=== PATIENT | male | born 1970 | race Caucasian/White ===

== ENCOUNTER 2018-06-20 12:44 | Inpatient (IN) | payer MEDICARE, MEDICAID ==
[~2018-06-20] VITALS: Ht 177.8 cm; Wt 63.0 kg
[2018-06-20 14:15] LABS: HEMATOCRIT 42.5 % (42.0-52.0); HEMOGLOBIN 15.2 g/dl (13.5-17.5); MEAN CORPUSCULAR HEMOGLOBIN 28.8 pg (27.0-33.0); MEAN CORPUSCULAR HGB CONC 35.8 g/dl (32.0-36.5); MEAN CORPUSCULAR VOLUME 80.6 fl (80.0-96.0); PLATELET COUNT, AUTOMATED 245 10^3/uL (150-450); RED BLOOD COUNT 5.27 10^6/uL (4.30-6.10); WHITE BLOOD COUNT 6.4 10^3/uL (4.0-10.0)
[2018-06-20 14:45] LABS: ACETAMINOPHEN LEVEL < 2.0 UG/ML (10.0-30.0); ALBUMIN 3.9 GM/DL (3.2-5.2); ALT/SGPT 25 U/L (12-78); BILIRUBIN,DIRECT 0.1 MG/DL (0.0-0.2); BILIRUBIN,TOTAL 0.6 MG/DL (0.2-1.0); BLOOD UREA NITROGEN 21 MG/DL (7-18); CALCIUM LEVEL 8.5 MG/DL (8.5-10.1); CARBON DIOXIDE LEVEL 25 MEQ/L (21-32); CHLORIDE LEVEL 107 MEQ/L (98-107); CREATININE FOR GFR 1.23 MG/DL (0.70-1.30); ETHYL ALCOHOL (ETHANOL) < 0.003 % (0.000-0.010); GLOMERULAR FILTRATION RATE > 60.0 (>56); GLUCOSE, FASTING 106 MG/DL (70-100); POTASSIUM SERUM 3.9 MEQ/L (3.5-5.1); SALICYLATE LEVEL < 1.7 MG/DL (5.0-30.0); SODIUM LEVEL 141 MEQ/L (136-145)
[2018-06-20 14:55] LABS: AMPHETAMINES LEVEL URINE NEGATIVE (NEGATIVE); BARBITURATES URINE NEGATIVE (NEGATIVE); BENZODIAZEPINES URINE NEGATIVE (NEGATIVE); CANNABINOIDS URINE NEGATIVE (NEGATIVE); COCAINE METABOLITE URINE NEGATIVE (NEGATIVE); METHADONE URINE NEGATIVE (NEGATIVE); OPIATES URINE NEGATIVE (NEGATIVE); PHENCYCLIDINE URINE NEGATIVE (NEGATIVE)
--- NOTE | 2018-06-20 17:10 | ED PDOC ---
Post-Departure Follow-Up pt became agitated w admission discussion.. unable to restrain physically due to chorea significant and do not want to cause physical harm. pt walking around room and is a fall risk due to chorea - dont want to at this pt do chemical restraints as we cannot safely restrain. spoke to pt. now undressed and more calm. will observe and reassess.Anthony Kimball MD Jun 20, 2018 17:10
[2018-06-20] MEDS ORDERED: OLANZapine ORAL DISINTEGRATING TAB 5MG PO PRN (18:00)
[2018-06-20] MEDS ORDERED: traZODone 50 MG TAB PO PRN (18:00)
[2018-06-20] MEDS ORDERED: MOM 30ML SUSPENSION UDC PO PRN (18:00)
[2018-06-20] MEDS ORDERED: ACETAMINOPHEN TAB 650MG DOSE (2X325MG) PO PRN (18:00)
[2018-06-20] MEDS ORDERED: MAALOX 30 ML SUSP *UDC PO PRN (18:00)
[2018-06-20] MEDS ORDERED: LORazepam 1 MG TAB PO PRN (18:00)
[2018-06-20] MEDS ORDERED: LORazepam 2 MG TAB PO STA (20:23)
[2018-06-20] MEDS ORDERED: diphenhydrAMINE INJ 50MG/ML VIAL (J1200) IM STA (22:13)
[2018-06-20] MEDS ORDERED: HALOPERIDOL 5 MG/ML VIAL (J1630) IM STA (22:13)
[2018-06-20] MEDS ORDERED: chlorproMAZINE INJ 50MG/2ML AMP (J3230) IM STA (22:42)
[2018-06-20 23:47] VITALS: BP 118/58
[2018-06-21] VITALS (12 sets, daily range): BP systolic 85–141; BP diastolic 52–80
[2018-06-21] MEDS: SERTRALINE HCL 50 MG TAB PO SCH (09:00)
[2018-06-21] MEDS: HALOPERIDOL 5 MG TAB PO SCH (09:00)
--- NOTE | 2018-06-21 10:57 | HPEPDOC ---
[facility] Medical History & Physical Date of Admission Jun 20, 2018 History and Physical PCP: ASHELY Awan ATTENDING: Dr. Peter Rosenbaum HPI: 48 yo M admitted to [facility] for adjustment disorder, being medically examined today. The patient is seen at the bedside, SYMONE present. The patient denies any medical concerns at this time. He has been noted to have unsteady gait, denies taking any medications for his history of [place]'s. Denies falls. Denies any assistive devices for ambulation. Denies any fevers, chills, weakness, fatigue, MAYS, CP, SOB, cough, palpitations, abdominal pain, N/V/D or changes in bowel or bladder habits. PMHx: Lesia's disease Unsteady gait History of dementia Anxiety Depression BMI 22.3. PSHX: Denies SOCHX: Resides in: [facility] Marital Status: Single Kids: None Employment: Unemployed Tobacco use: Denies ETOH: Denies Illicit Drugs: Denies IV Drug Use: Denies Tattoos done unprofessionally: Denies FAMHX: Mother: Alive, well Father: History of [place]'s disease Siblings: One brother, one sister Alive, well Children: Alive, well Unexpected deaths due to medical reasons: None. ROS: As noted in HPI, otherwise 11pt ROS of systems reviewed and unremarkable. PE: Limited exam at the bedside. GEN: 48 yo M, appears older than stated age. Thin appearing. Appears unkept. Alert and oriented x 3. Slow to respond to questions, vague responses. HEENT: Normocephalic, atraumatic. No nystagmus appreciated. Sclera are nonicteric. Conjunctiva without injection. No facial asymmetry. Moist mucous membranes. CHEST: Regular rate and rhythm, +S1, +S2 LUNGS: Clear to auscultation bilaterally. No wheezes, rales, or rhonchi. Breathing appears symmetric and easy. ABD: flat, soft, non-tender, non-distended. +Bowel sounds throughout. No rebound or guarding. No costovertebral angle tenderness. EXT: No lower extremity edema appreciated. SKIN: [place], dry, warm. No rashes. NEURO: Alert and oriented x 3. No focal deficits appreciated. Frequent choreiform movements. EKG: pending A&P: 48 yo M admitted to [facility] for adjustment disorder, 1. Psych. Plan per Psychiatry. EObtain baseline EKG to assure the safety of psychiatric medications as they can prolong the QT interval. 2. Lesia's disease. Pt states he follows with Neurology at the [place] in [place]. 3. Unsteady gait. PT evaluation requested. Fall precautions. SYMONE at bedside. 4. BMI 22.3. Request nutrition consult. The pt is denying any difficulty with swallowing, denies cough. 5. Follow up with PCP on discharge. Vital Signs Vital Signs Date Time Temp Pulse Resp B/P (MAP) Pulse Ox O2 Delivery O2 Flow Rate FiO2 06/21/18 06:51 96.5 94 14 123/60 (81) 06/20/18 21:05 98 Room Air Laboratory Data Labs 24H Laboratory Tests 2 06/20/18 13:40: Nucleated Red Blood Cells % (auto) 0.0, Anion Gap 9, Glomerular Filtration Rate > 60.0, Calcium Level 8.5, Aspartate Amino Transf (AST/SGOT) 21, Alanine Aminotransferase (ALT/SGPT) 25, Alkaline Phosphatase 94, Total Bilirubin 0.6, Direct Bilirubin 0.1, Total Protein 7.0, Albumin 3.9, Albumin/Globulin Ratio 1.26, Thyroid Stimulating Hormone (TSH) 2.290, Salicylates Level < 1.7L, Acetaminophen Level < 2.0L, Ethyl Alcohol Level < 0.003 06/20/18 13:49: Urine Amphetamines Screen NEGATIVE, Urine Benzodiazepines Screen NEGATIVE, Urine Opiates Screen NEGATIVE, Urine Methadone Screen NEGATIVE, Urine Barbiturates Screen NEGATIVE, Urine Phencyclidine Screen NEGATIVE, Urine Cocaine Metabolite Screen NEGATIVE, Urine Cannabinoids Screen NEGATIVE CBC/BMP Laboratory Tests 06/20/18 13:40 Red Blood Count 5.27, Mean Corpuscular Volume 80.6, Mean Corpuscular Hemoglobin 28.8, Mean Corpuscular Hemoglobin Concent 35.8, Red Cell Distribution Width 12.9 Home Medications No Active Prescriptions or Reported Meds Allergies Coded Allergies: No Known Allergies (Unverified , 06/20/18) Marcela Gonsalez Jun 21, 2018 10:57
--- NOTE | 2018-06-21 13:02 | MHHPEPDOC ---
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 He was guarded and a poor historian refusing medical and psychiatric treatment for his illness. He was cooperative in the ED though. 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 Unsteady gait History of dementia Head Injury: No Seizures: No Hospitalizations: No Surgeries: No Family Medical/Psychiatric HX Medical Problems noncontributory Psychiatric Disorders: No Addiction: No Suicide Attemps/Completions: No Addiction History denies Social History Childhood: unable to assess Abuse/Trauma:unable to assess Current Living Situation: lives alone, 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 Education: high school Employment: disability Social Support: mother and sister Legal: none known Marital: single never Mental Status Examination General Appearance: ds/not appear stated age (older), hospital scubs/clothing, other (asleep in bed, changes position in bed often while asleep) Build: thin Demeanor: other (unable to assess) Eye Contact: other (unable to assess) Activity: other (hoang's chorea) Behavior: other (unable to assess) Speech: other (unable to assess) Mood: other (unable to assess) Mood unable to assess Affect: other (unable to assess) Thought Process: other (unable to assess) Thought Content (Delusions): denies SI, HI, AVH, other (per ED) Thought Content (Other): other (unable to assess) Thought Content (Aggressive): none reported, other (has Calvert's Chorea and mvmts uncontrollable due to disease and are not intentional) Perception (Hallucinations): none reported, other (per ED) Perception (Other): none reported Cognition (Impairment of): memory (history of demetia), unable to assess Cognition(Intelligence Est.): other (unable to assess) Insight: fair Judgment: Fair Psychosis: Denies Diagnoses Other mood d/o unspecified Hoang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 Dementia Assessment Pt currently asleep with sitter present to monitor him due to high risk of falls give he has hoang's chorea and has been cooperative with care and calm on the unit since he's been here. Pt's symptoms most likely due to natural decompensation of Calvert's disease to chorea and eventual and would best be treated neurologically to aid with chorea at home causing him to unintensionally break things rather than psychiatrically inpatient. May need NH placement as again is natural progress and decompensation prior to secondary disease. Will consult neurology. Will start pt on amantidine 100mg tid to improve chorea movements for now, haldol 5mg bid for agitation secondary chorea, and zoloft 50mg for mood. Initial Treatment Plan 1. Patient was admitted on a 9.39 status. 2. Complete history was obtained. 3. With patients permission, family will be contacted and database will be expanded. 4. Patients medication regimen will be reviewed and changed accordingly. 5. Patient will be provided with protected environment. 6. Patient will be treated with individual, group, and milieu therapies. 7. Patient will receive supportive psych-education. 8. Discharge planning will commence immediately. 9. Outpatient follow-up treatment will be strongly recommended. 10. The initial treatment plan will focus initially on: * Depression. * Risk for suicide. * Substance abuse. 11. consult neurology. amantidine 100mg tid to improve chorea movements, haldol 5mg bid for agitation secondary chorea, and zoloft 50mg for mood. ESTIMATED LENGTH OF STAY: 5-7 DAYS. TIME SPENT COUNSELING AND COORDINATING INITIAL CARE: 60 minutes. Vital Signs Vital Signs Date Time Temp Pulse Resp B/P (MAP) Pulse Ox O2 Delivery O2 Flow Rate FiO2 06/21/18 06:51 96.5 94 14 123/60 (81) 06/20/18 21:05 98 Room Air Laboratory Data 24H Labs Laboratory Tests 2 06/20/18 13:40: Nucleated Red Blood Cells % (auto) 0.0, Anion Gap 9, Glomerular Filtration Rate > 60.0, Calcium Level 8.5, Aspartate Amino Transf (AST/SGOT) 21, Alanine Aminotransferase (ALT/SGPT) 25, Alkaline Phosphatase 94, Total Bilirubin 0.6, Direct Bilirubin 0.1, Total Protein 7.0, Albumin 3.9, Albumin/Globulin Ratio 1.26, Thyroid Stimulating Hormone (TSH) 2.290, Salicylates Level < 1.7L, Acetaminophen Level < 2.0L, Ethyl Alcohol Level < 0.003 06/20/18 13:49: Urine Amphetamines Screen NEGATIVE, Urine Benzodiazepines Screen NEGATIVE, Urine Opiates Screen NEGATIVE, Urine Methadone Screen NEGATIVE, Urine Barbiturates Screen NEGATIVE, Urine Phencyclidine Screen NEGATIVE, Urine Cocaine Metabolite Screen NEGATIVE, Urine Cannabinoids Screen NEGATIVE CBC/BMP Laboratory Tests 06/20/18 13:40 Red Blood Count 5.27, Mean Corpuscular Volume 80.6, Mean Corpuscular Hemoglobin 28.8, Mean Corpuscular Hemoglobin Concent 35.8, Red Cell Distribution Width 12.9 Medications No Active Prescriptions or Reported Meds Allergies Coded Allergies: No Known Allergies (Unverified , 06/20/18) YOSELIN DENSON DO Jun 21, 2018 1:02 pm
[2018-06-21] MEDS: AMANTADINE 100 MG CAP PO SCH (15:23)
[2018-06-21] MEDS ORDERED: diphenhydrAMINE INJ 50MG/ML VIAL (J1200) IM STA ×2 (18:24→18:28)
[2018-06-21] MEDS ORDERED: HALOPERIDOL 5 MG/ML VIAL (J1630) IM STA ×2 (18:24→18:28)
[2018-06-21] MEDS ORDERED: LORazepam 2 MG/ML VIAL (J2060) IM STA ×2 (18:24→18:28)
[2018-06-21] MEDS ORDERED: HALOPERIDOL 5 MG/ML VIAL (J1630) As Ordered ONE (18:27)
[2018-06-21] MEDS ORDERED: LORazepam 2 MG/ML VIAL (J2060) As Ordered ONE (18:27)
[2018-06-21] MEDS ORDERED: diphenhydrAMINE INJ 50MG/ML VIAL (J1200) As Ordered ONE (18:28)
--- NOTE | 2018-06-21 18:48 | MHIR ---
General Date: Jun 21, 2018 Time Initiated: 18:20 Restraint Documentation Order/Evaluation FACE TO FACE: Yes PHYSICIAN ASSESSMENT: Patient was agitated, angry, wanted to leave the unit, was threatening to staff, loud, inappropriate. REASON FOR RESTRAINT: Patient poses imminent danger of harming self or others: As above DE-ESCALATION INTERVENTIONS ATTEMPTED BEFORE USE OF RESTRAINTS: Re direction, staff support, PRN meds, room close to Nurse station MECHANICAL AND/OR CHEMICAL RESTRAINTS USED: Patient was going to be on 4 point restraints but once he was taken to his room and he was told he would have to receive IM medications, he accepted them and remained quite, laying in bed. NO MECHANICAL RESTRAINTS HAD TO BE APPLIED LENGTH OF TIME ORDERED IN RESTRAINTS: It's only as long as the medications last in patient's system WHEN TO DISCONTINUE RESTRAINTS: When the patient is no longer a threat to themselves or others Post evaluation of restraint due in 24 hours. KAITLIN MENDOZA MD Jun 21, 2018 18:48
--- NOTE | 2018-06-21 19:00 | MHIPNPDOC ---
[facility] Progress Note Progress Note DATE OF SERVICE: 06/21/18 HISTORY: This is a 48 year old male who presented agitated, screaming, yelling at staff, approaching the door because he wants to leave the Unit, at tempting to pull the fire alarm. He presented with jerking movements he was not willing to leave that area but eventually he did it. TW spoke with staff and agreed on having him 4 point restrained but once he went to the room and he was told that he was b eing coded, he accepted his IM medications and remained in his room. There was no need to restraint him anymore. Vital Signs Vital Signs Date Time Temp Pulse Resp B/P (MAP) Pulse Ox O2 Delivery O2 Flow Rate FiO2 06/21/18 06:51 96.5 94 14 123/60 (81) 06/20/18 21:05 98 Room Air Current Medications Current Medications Acetaminophen (Tylenol Tab) 650 mg Q6HP PRN PO HEADACHE or DISCOMFORT; Start 06/20/18 at 18:00 Al Hydrox/Mg Hydrox/Simethicone (Mylanta) 30 ml Q4HP PRN PO HEARTBURN/INDIGESTION; Start 06/20/18 at 18:00 Amantadine HCl (Symmetrel) 100 mg TID PO ; Start 06/21/18 at 16:00 Chlorpromazine HCl (Thorazine) 50 mg STAT STAT IM Last administered on 06/20/18at 22:42; Start 06/20/18 at 22:42; Stop 06/20/18 at 22:44; Status DC Diphenhydramine HCl (Benadryl) 50 mg STAT STAT IM Last administered on 06/20/18at 22:13; Start 06/20/18 at 22:13; Stop 06/20/18 at 22:15; Status DC Diphenhydramine HCl (Benadryl) 50 mg STAT STAT IM ; Start 06/21/18 at 18:24; Stop 06/21/18 at 18:28; Status DC Haloperidol (Haldol) 5 mg BID PO ; Start 06/21/18 at 09:00 Haloperidol (Haldol) 5 mg STAT STAT IM Last administered on 06/20/18at 22:13; Start 06/20/18 at 22:13; Stop 06/20/18 at 22:15; Status DC Haloperidol (Haldol) 10 mg STAT STAT IM ; Start 06/21/18 at 18:24; Stop 06/21/18 at 18:27; Status DC Home Med (Med Rec Complete!) ASDIRECTED XX ; Start 06/20/18 at 16:30; Stop 06/20/18 at 16:30; Status DC Lorazepam (Ativan) 1 mg Q4HP PRN PO ANXIETY/AGITATION; Start 06/20/18 at 18:00 Lorazepam (Ativan) 2 mg STAT STAT IM ; Start 06/21/18 at 18:24; Stop 06/21/18 at 18:28; Status DC Lorazepam (Ativan) 2 mg STAT STAT PO ; Start 06/20/18 at 20:23; Stop 06/20/18 at 20:24; Status DC Magnesium Hydroxide (Milk Of Magnesia) 30 ml DAILYPRN PRN PO CONSTIPATION; Start 06/20/18 at 18:00 Olanzapine (ZyPREXA ZYDIS) 5 mg Q4HP PRN PO ANXIETY/AGITATION; Start 06/20/18 at 18:00 Sertraline HCl (Zoloft) 50 mg DAILY PO ; Start 06/21/18 at 09:00 Trazodone HCl (Desyrel) 50 mg QHSP PRN PO INSOMNIA; Start 06/20/18 at 18:00 Allergies Coded Allergies: No Known Allergies (Unverified , 06/20/18) KAITLIN MENDOZA MD Jun 21, 2018 19:00
--- NOTE | 2018-06-21 20:29 | MHPR ---
General Date: Jun 21, 2018 Time: 20:23 Post-Restraint Evaluation THE OUTCOME OF THE RESTRAINT: Positive EFFECTIVENESS OF THE RESTRAINT: Mechanical: Positive, patient ANY EVIDENCE THAT THE PATIENT WAS AFFECTED EMOTIONALLY: Not in a negative way. he was able to calm down and relax, something that he needs. ANY NEED FOR COUNSELING/ASSISTANCE: The administration of the Im medications was not traumatic, he acceptd to have the injection and remained in his room. he will be counseled, support will be provided. CHANGES IN TREATMENT PLAN: As per Dr. Mckinney. RECOMMENDATIONS FOR FUTURE INCIDENTS: continue to assist him and provide support.. KAITLIN MENDOZA MD Jun 21, 2018 20:29
[2018-06-22] MEDS: HALOPERIDOL 5 MG TAB PO SCH ×4 (07:55→21:00)
[2018-06-22] MEDS: SERTRALINE HCL 50 MG TAB PO SCH ×2 (07:55→09:00)
[2018-06-22] MEDS: AMANTADINE 100 MG CAP PO SCH ×5 (07:56→21:00)
--- NOTE | 2018-06-22 09:48 | CR ---
DATE OF CONSULTATION: 06/21/2018 REFERRING PHYSICIAN: Dr. Mckinney REASON FOR CONSULTATION: Lesia's disease. HISTORY PRESENT ILLNESS: Porfirio Henao is a 48-year-old man who was admitted at [facility] mental health unit due to aggressive behavior and inability to take care of himself. The patient had broken things in his house including cabinet doors and countertop in his kitchen. He became more aggressive and anxious. He was banging head on the wall of his doctor's appointment at the [place] [facility]. He had poor hygiene. 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 Patient has a history of dementia. 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 He follows with [place] neurology. When I went to see the patient this evening, the patient had received chemical restraint with 10 mg of Haldol, 2 mg of Ativan and 50 mg of Benadryl. He was sleeping and would not wake up to verbal or physical stimuli when I saw him. His blood pressure was manually checked and was 100/60 at that time. I was not able to get any meaningful history from the patient. It is unclear to me why the patient was brought [facility] instead of the [facility] where his neurologist and psychiatrist are likely. PAST MEDICAL HISTORY: Lesia's disease, which according to EMR was diagnosed 20 years ago. Unsteady gait. Dementia. Anxiety. Depression. SOCIAL HISTORY: He is unemployed. There are no reports of smoking, alcohol or illicit drugs. FAMILY HISTORY: Father has [place]'s disease. REVIEW OF SYSTEMS: Could not be obtained. ALLERGIES: None. HOME MEDICATIONS: None. PHYSICAL EXAMINATION: Temperature 98.6, pulse 88, respiratory 18, blood pressure 100/69 manually. Heart: Regular rate and rhythm. Lungs: Clear to auscultation. No pedal edema. No musculoskeletal abnormalities. No rash. No signs of meningeal irritation. The patient is currently sleeping due to chemical restraint. He is not arousable to verbal and physical stimuli. He does not have any abnormal movements while he is sleeping. Nurses have noted a lot of abnormal movements all over his body indicative of choreoathetosis from his diagnosis of [place]'s disease. I am unable to do any other neurological examination. His plantars are downgoing. DIAGNOSTIC STUDIES: His CBC, metabolic profile and urine toxicology screen were normal. Blood alcohol level was not detectable. ASSESSMENT: 1. [place]'s disease. 2. 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 PLAN: 1. MRI or CT scan of head if possible to assess degree of cerebral and caudate nuclei atrophy. 2. Agree with starting Zoloft 50 mg by mouth daily. 3. Lesia's disease related choreoathetosis is best treated with medications like tetrabenazine and its other isomers which are all commercially available, but not in the hospital. They are usually started as outpatient. I have no records from [place] neurology if these were ever tried and/or results. 4. Continue Zyprexa 5 mg by mouth every 4 hours as needed for anxiety and aggressive behavior. The patient is on Haldol 5 mg by mouth twice a day. Typical antipsychotics also have benefit in choreoathetosis and controlling his mood. 5. He would likely need placement. 6. The patient will follow-up with his neurologist at the [facility].
--- NOTE | 2018-06-22 14:46 | MHIPNPDOC ---
[facility] Progress Note Progress Note DATE OF SERVICE: 06/22/18 HISTORY: See HPI. Interval history: States he does not want to be here and was not compliant to interview. Was agitated and states being on the inpatient unit makes him feel suicidal. Endorses passive homicidal thoughts towards those placing him on the inpatient as an expression of anger. Told him neurology recommended we get imaging and that. VITAL SIGNS: See below. NEW TEST RESULTS: see below CURRENT MEDICATIONS: See below. MENTAL STATUS EXAMINATION: Patient is a -year old male, with HD, he is with poor hygiene, restless in hospi tejinder clothing, not cooperative to interview. Speech: erratic rate, rhythm, increased volume. Language skills are poor Thought processes including: disorganized, tangential Thought content: unable to assess, refused to continue interview/agitated Abstract reasoning, and computation: unable to assess, refused to continue interview/agitated Description of associations: unable to assess, refused to continue interview/agitated Description of abnormal or psychotic thoughts: unable to assess, refused to continue interview/agitated Judgment: poor Insight: poor Orientation: alert, awake Recent and remote memory: unable to assess, refused to continue interview/agitated Attention span and concentration: unable to assess, refused to continue interview/agitated Language: korean Fund of knowledge: unable to assess, refused to continue interview/agitated Mood: angry Affect: agitated, angry, labile, disorganized, does not smile DIAGNOSES: Other mood d/o unspecified Coke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 Dementia ASSESSMENT: Patient has been refusing medications/groups. Continues to be angry/agitated with passive SI/HI reported. Refused to continue interview and became agitated. MANAGEMENT PLAN: Continue plan/medications, ordered MRI brain w/o contrast per neurology recommendations due to possible cerebral and caudate atrophy (which was cancelled due elopement risk and ). Maintained on 1:1 due to fall risk. TIME SPENT: 10 minutes. Vital Signs Vital Signs Date Time Temp Pulse Resp B/P (MAP) Pulse Ox O2 Delivery O2 Flow Rate FiO2 06/22/18 09:21 Room Air 06/21/18 20:45 98.4 83 12 98/58 06/21/18 19:30 98 Current Medications Current Medications Acetaminophen (Tylenol Tab) 650 mg Q6HP PRN PO HEADACHE or DISCOMFORT; Start 06/20/18 at 18:00 Al Hydrox/Mg Hydrox/Simethicone (Mylanta) 30 ml Q4HP PRN PO HEARTBURN /INDIGESTION; Start 06/20/18 at 18:00 Amantadine HCl (Symmetrel) 100 mg TID PO ; Start 06/21/18 at 16:00 Chlorpromazine HCl (Thorazine) 50 mg STAT STAT IM Last administered on 06/20/18at 22:42; Start 06/20/18 at 22:42; Stop 06/20/18 at 22:44; Status DC Diphenhydramine HCl (Benadryl) 50 mg STAT STAT IM Last administered on 06/20/18at 22:13; Start 06/20/18 at 22:13; Stop 06/20/18 at 22:15; Status DC Diphenhydramine HCl (Benadryl) 50 mg STAT STAT IM Last administered on 06/21/18at 18:39; Start 06/21/18 at 18:24; Stop 06/21/18 at 18:28; Status DC Diphenhydramine HCl (Benadryl) 50 mg STAT STAT IM ; Start 06/21/18 at 18:28; Stop 06/21/18 at 18:32; Status DC Haloperidol (Haldol) 5 mg BID PO ; Start 06/21/18 at 09:00 Haloperidol (Haldol) 5 mg STAT STAT IM Last administered on 06/20/18at 22:13; Start 06/20/18 at 22:13; Stop 06/20/18 at 22:15; Status DC Haloperidol (Haldol) 10 mg STAT STAT IM Last administered on 06/21/18at 18:39; Start 06/21/18 at 18:24; Stop 06/21/18 at 18:27; Status DC Haloperidol (Haldol) 10 mg STAT STAT IM ; Start 06/21/18 at 18:28; Stop 06/21/18 at 18:32; Status DC Home Med (Med Rec Complete!) ASDIRECTED XX ; Start 06/20/18 at 16:30; Stop 06/20/18 at 16:30; Status DC Lorazepam (Ativan) 1 mg Q4HP PRN PO ANXIETY/AGITATION; Start 06/20/18 at 18:00 Lorazepam (Ativan) 2 mg STAT STAT IM Last administered on 06/21/18at 18:38; Start 06/21/18 at 18:24; Stop 06/21/18 at 18:28; Status DC Lorazepam (Ativan) 2 mg STAT STAT IM ; Start 06/21/18 at 18:28; Stop 06/21/18 at 18:32; Status DC Lorazepam (Ativan) 2 mg STAT STAT PO ; Start 06/20/18 at 20:23; Stop 06/20/18 at 20:24; Status DC Magnesium Hydroxide (Milk Of Magnesia) 30 ml DAILYPRN PRN PO CONSTIPATION; Start 06/20/18 at 18:00 Olanzapine (ZyPREXA ZYDIS) 5 mg Q4HP PRN PO ANXIETY/AGITATION; Start 06/20/18 at 18:00 Sertraline HCl (Zoloft) 50 mg DAILY PO ; Start 06/21/18 at 09:00 Trazodone HCl (Desyrel) 50 mg QHSP PRN PO INSOMNIA; Start 06/20/18 at 18:00 Allergies Coded Allergies: No Known Allergies (Unverified , 06/20/18) URIEL COELHO PGY-1 Jun 22, 2018 14:32
[2018-06-22 18:37] VITALS: BP 133/63
[2018-06-23] MEDS: AMANTADINE 100 MG CAP PO SCH ×3 (09:00→21:00)
[2018-06-23] MEDS: HALOPERIDOL 5 MG TAB PO SCH ×2 (09:00→21:00)
[2018-06-23] MEDS: SERTRALINE HCL 50 MG TAB PO SCH (09:00)
--- NOTE | 2018-06-23 10:01 | MHIPNPDOC ---
[facility] Progress Note Progress Note DATE OF SERVICE: 06/23/18 HISTORY: See HPI. Interval history: Refusing medications and imaging cancelled since refused. Non- compliant to interview. Becomes agitated when attempt to interview, but is calm on 1:1. Was seen in social milieu getting breakfast and also on the phone in the corridor. Says he is not suicidal if he can leave. Says he does not need to be here. VITAL SIGNS: See below. NEW TEST RESULTS: see below CURRENT MEDICATIONS: See below. MENTAL STATUS EXAMINATION: Patient is a -year old male, with HD, he is with poor hygiene, restless in hospital clothing, not cooperative to interview. Speech: erratic rate, rhythm, increased volume. Language skills are poor Thought processes including: disorganized, tangential Thought content: unable to assess, refused to continue interview/agitated Abstract reasoning, and computation: unable to assess, refused to continue interview/agitated Description of associations: unable to assess, refused to continue interview/agitated Description of abnormal or psychotic thoughts: unable to assess, refused to continue interview/agitated Judgment: poor Insight: poor Orientation: alert, awake Recent and remote memory: unable to assess, refused to continue interview/agitated Attention span and concentration: unable to assess, refused to continue interview/agitated Language: tamazight Fund of knowledge: again unable to assess, refused to continue interview/agitated Mood: angry Affect: agitated, angry, labile, disorganized, does not smile DIAGNOSES: 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 Continues to be angry/agitated. Refused to be interviewed and became agitated again. Calm when not disturbed and with 1:1. MANAGEMENT PLAN: Continue plan/medications. Continues to refuse zoloft, haldol. Maintained on 1:1 due to fall risk. TIME SPENT: 10 minutes. Vital Signs Vital Signs Date Time Temp Pulse Resp B/P (MAP) Pulse Ox O2 Delivery O2 Flow Rate FiO2 06/23/18 08:30 Room Air 06/22/18 18:37 98.1 90 20 133/63 (86) 06/21/18 19:30 98 Current Medications Current Medications Acetaminophen (Tylenol Tab) 650 mg Q6HP PRN PO HEADACHE or DISCOMFORT; Start 06/20/18 at 18:00 Al Hydrox/Mg Hydrox/Simethicone (Mylanta) 30 ml Q4HP PRN PO HEARTBURN/INDIGESTION; Start 06/20/18 at 18:00 Amantadine HCl (Symmetrel) 100 mg TID PO ; Start 06/21/18 at 16:00 Chlorpromazine HCl (Thorazine) 50 mg STAT STAT IM Last administered on 06/20/18at 22:42; Start 06/20/18 at 22:42; Stop 06/20/18 at 22:44; Status DC Diphenhydramine HCl (Benadryl) 50 mg STAT STAT IM Last administered on 06/20/18at 22:13; Start 06/20/18 at 22:13; Stop 06/20/18 at 22:15; Status DC Diphenhydramine HCl (Benadryl) 50 mg STAT STAT IM Last administered on at 18:39; Start 06/21/18 at 18:24; Stop 06/21/18 at 18:28; Status DC Diphenhydramine HCl (Benadryl) 50 mg STAT STAT IM ; Start 06/21/18 at 18:28; Stop 06/21/18 at 18:32; Status DC Haloperidol (Haldol) 5 mg BID PO ; Start 06/21/18 at 09:00 Haloperidol (Haldol) 5 mg STAT STAT IM Last administered on 06/20/18at 22:13; Start 06/20/18 at 22:13; Stop 06/20/18 at 22:15; Status DC Haloperidol (Haldol) 10 mg STAT STAT IM Last administered on 06/21/18at 18:39; Start 06/21/18 at 18:24; Stop 06/21/18 at 18:27; Status DC Haloperidol (Haldol) 10 mg STAT STAT IM ; Start 06/21/18 at 18:28; Stop 06/21/18 at 18:32; Status DC Home Med (Med Rec Complete!) ASDIRECTED XX ; Start 06/20/18 at 16:30; Stop 06/20/18 at 16:30; Status DC Lorazepam (Ativan) 1 mg Q4HP PRN PO ANXIETY/AGITATION; Start 06/20/18 at 18:00 Lorazepam (Ativan) 2 mg STAT STAT IM Last administered on 06/21/18at 18:38; St art 06/21/18 at 18:24; Stop 06/21/18 at 18:28; Status DC Lorazepam (Ativan) 2 mg STAT STAT IM ; Start 06/21/18 at 18:28; Stop 06/21/18 at 18:32; Status DC Lorazepam (Ativan) 2 mg STAT STAT PO ; Start 06/20/18 at 20:23; Stop 06/20/18 at 20:24; Status DC Magnesium Hydroxide (Milk Of Magnesia) 30 ml DAILYPRN PRN PO CONSTIPATION; Start 06/20/18 at 18:00 Olanzapine (ZyPREXA ZYDIS) 5 mg Q4HP PRN PO ANXIETY/AGITATION; Start 06/20/18 at 18:00 Sertraline HCl (Zoloft) 50 mg DAILY PO ; Start 06/21/18 at 09:00 Trazodone HCl (Desyrel) 50 mg QHSP PRN PO INSOMNIA; Start 06/20/18 at 18:00 Allergies Coded Allergies: No Known Allergies (Unverified , 06/20/18) URIEL COELHO PGY-1 Jun 23, 2018 10:01
[2018-06-23 18:27] VITALS: BP 136/86
[2018-06-24] MEDS: AMANTADINE 100 MG CAP PO SCH ×3 (09:00→20:52)
[2018-06-24] MEDS: SERTRALINE HCL 50 MG TAB PO SCH (09:00)
[2018-06-24] MEDS: HALOPERIDOL 5 MG TAB PO SCH ×2 (09:00→20:52)
--- NOTE | 2018-06-24 10:14 | MHIPNPDOC ---
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 He was guarded and a poor historian refusing medical and psychiatric treatment for his illness. He was cooperative in the ED though. VITAL SIGNS: See below. NEW TEST RESULTS: see below Neurology consulted and please see consult note for full detail. Agrees with meds and current plan NH placement. CURRENT MEDICATIONS: See below. MENTAL STATUS EXAMINATION: Patient is a 48-year old male, with HD, he is with poor hygiene, chorea movements, hospital clothing, cooperative to interview. Speech: impoverished and one word responses Language skills are poor Thought processes including: appear mostly linear and logical Thought content: denies SI/HI, AVH Description of associations: unable to assess due to limited answers to question Description of abnormal or psychotic thoughts: denies Judgment: poor Insight: poor Orientation: alert, awake, oriented x3 Recent and remote memory: unable to assess due to limited answers to question Attention span and concentration: fair Language: nepali Fund of knowledge: hx of dementia secondary HD, unable to assess due to limited answers to question Mood: "ok" Affect: slightly irritable, labile DIAGNOSES: 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 Continues to state he doesn't want to take medications and will not give specific reason other than he just doesn't want to take them. Encouraged to try them to aid him with mood, irritability, and chorea. Pt's symptoms most likely due to natural decompensation of Lesia's disease to chorea and eventual . Pt seen by neurology on Sunday who agrees with current med regimen that I discussed with him as tetrabenzine not available in the hospital. Pt currently refusing medication and head CT/MRI and will continue to encourage compliance to improve his symptoms. He is calm and cooperative today with no episodes of agitation. Did require restraints due to agitation on Sunday evening. Will need NH placement as again is natural progress and decompensation prior to secondary disease and per d/c exercise planner is on wait list for [facility]. MANAGEMENT PLAN: pending neurology consult Medications: amantidine 100mg tid haldol 5mg bid for agitation secondary chorea zoloft 50mg for mood. TIME SPENT: 30 minutes. Vital Signs Vital Signs Date Time Temp Pulse Resp B/P (MAP) Pulse Ox O2 Delivery O2 Flow Rate FiO2 06/23/18 18:27 98.5 72 20 136/86 (103) 06/23/18 08:30 Room Air 06/21/18 19:30 98 Current Medications Current Medications Acetaminophen (Tylenol Tab) 650 mg Q6HP PRN PO HEADACHE or DISCOMFORT; Start 06/20/18 at 18:00 Al Hydrox/Mg Hydrox/Simethicone (Mylanta) 30 ml Q4HP PRN PO HEARTBURN/INDIGESTION; Start 06/20/18 at 18:00 Amantadine HCl (Symmetrel) 100 mg TID PO ; Start 06/21/18 at 16:00 Chlorpromazine HCl (Thorazine) 50 mg STAT STAT IM Last administered on 06/20/18at 22:42; Start 06/20/18 at 22:42; Stop 06/20/18 at 22:44; Status DC Diphenhydramine HCl (Benadryl) 50 mg STAT STAT IM Last administered on 06/20/18at 22:13; Start 06/20/18 at 22:13; Stop 06/20/18 at 22:15; Status DC Diphenhydramine HCl (Benadryl) 50 mg STAT STAT IM Last administered on 06/21/18at 18:39; Start 06/21/18 at 18:24; Stop 06/21/18 at 18:28; Status DC Diphenhydramine HCl (Benadryl) 50 mg STAT STAT IM ; Start 06/21/18 at 18:28; Stop 06/21/18 at 18:32; Status DC Haloperidol (Haldol) 5 mg BID PO ; Start 06/21/18 at 09:00 Haloperidol (Haldol) 5 mg STAT STAT IM Last administered on 06/20/18at 22:13; Start 06/20/18 at 22:13; Stop 06/20/18 at 22:15; Status DC Haloperidol (Haldol) 10 mg STAT STAT IM Last administered on 06/21/18at 18:39; Start 06/21/18 at 18:24; Stop 06/21/18 at 18:27; Status DC Haloperidol (Haldol) 10 mg STAT STAT IM ; Start 06/21/18 at 18:28; Stop 06/21/18 at 18:32; Status DC Home Med (Med Rec Complete!) ASDIRECTED XX ; Start 06/20/18 at 16:30; Stop 06/20/18 at 16:30; Status DC Lorazepam (Ativan) 1 mg Q4HP PRN PO ANXIETY/AGITATION; Start 06/20/18 at 18:00 Lorazepam (Ativan) 2 mg STAT STAT IM Last administered on 06/21/18at 18:38; Start 06/21/18 at 18:24; Stop 06/21/18 at 18:28; Status DC Lorazepam (Ativan) 2 mg STAT STAT IM ; Start 06/21/18 at 18:28; Stop 06/21/18 at 18:32; Status DC Lorazepam (Ativan) 2 mg STAT STAT PO ; Start 06/20/18 at 20:23; Stop 06/20/18 at 20:24; Status DC Magnesium Hydroxide (Milk Of Magnesia) 30 ml DAILYPRN PRN PO CONSTIPATION; St art 06/20/18 at 18:00 Olanzapine (ZyPREXA ZYDIS) 5 mg Q4HP PRN PO ANXIETY/AGITATION; Start 06/20/18 at 18:00 Sertraline HCl (Zoloft) 50 mg DAILY PO ; Start 06/21/18 at 09:00 Trazodone HCl (Desyrel) 50 mg QHSP PRN PO INSOMNIA; Start 06/20/18 at 18:00 Allergies Coded Allergies: No Known Allergies (Unverified , 06/20/18) YOSELIN DENSON DO Jun 24, 2018 10:14 am
[2018-06-24] MEDS ORDERED: diphenhydrAMINE INJ 50MG/ML VIAL (J1200) IM ONE (16:15)
[2018-06-24] MEDS ORDERED: HALOPERIDOL 5 MG/ML VIAL (J1630) IM ONE (16:15)
[2018-06-24] MEDS ORDERED: diphenhydrAMINE INJ 50MG/ML VIAL (J1200) IM STA (16:28)
[2018-06-24] MEDS ORDERED: HALOPERIDOL 5 MG/ML VIAL (J1630) IM STA (16:28)
--- NOTE | 2018-06-24 16:37 | MHIR ---
General Date: Jun 24, 2018 Time Initiated: 16:33 Restraint Documentation Order/Evaluation FACE TO FACE:yes PHYSICIAN ASSESSMENT: pt agitated, asking to go to mall repeated, walking halls at high risk of falling due to chorea not following redirection and refusing prn medications. Attempt to slam door on myself and then went in the shower with all his clothes on. REASON FOR RESTRAINT: Patient poses imminent danger of harming self DE-ESCALATION INTERVENTIONS ATTEMPTED BEFORE USE OF RESTRAINTS: multiple including redirection, staff support and reassurance, prn meds offered [MECHANICAL AND/OR CHEMICAL] RESTRAINTS USED: chemical - haldol 10mg IM and Benadryl 100mg IM LENGTH OF TIME ORDERED IN RESTRAINTS: When the patient is no longer a threat to himself WHEN TO DISCONTINUE RESTRAINTS: When the patient is no longer a threat to himself Post evaluation of restraint due in 24 hours. YOSELIN DENSON DO Jun 24, 2018 4:37 pm
[2018-06-24 18:00] VITALS: BP 136/84
[2018-06-25] MEDS: AMANTADINE 100 MG CAP PO SCH ×3 (09:03→21:00)
[2018-06-25] MEDS: SERTRALINE HCL 50 MG TAB PO SCH (09:03)
[2018-06-25] MEDS: HALOPERIDOL 5 MG TAB PO SCH ×2 (09:04→21:00)
--- NOTE | 2018-06-25 09:39 | MHPR ---
General Date: Jun 24, 2018 Time: 01:00 Post-Restraint Evaluation THE OUTCOME OF THE RESTRAINT: pt took medications willingly and did not need to be restrained EFFECTIVENESS OF THE RESTRAINT: Mechanical and/or chemical: agreed to take prn haldol and benadryl, no restraint needed ANY EVIDENCE THAT THE PATIENT WAS AFFECTED EMOTIONALLY: no ANY NEED FOR COUNSELING/ASSISTANCE: no CHANGES IN TREATMENT PLAN: continue current plan RECOMMENDATIONS FOR FUTURE INCIDENTS: YOSELIN Suazo DO Jun 25, 2018 9:39 am
--- NOTE | 2018-06-25 09:42 | MHIPNPDOC ---
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 He was guarded and a poor historian refusing medical and psychiatric treatment for his illness. He was cooperative in the ED though. VITAL SIGNS: See below. NEW TEST RESULTS: see below Neurology consulted and please see consult note for full detail. Agrees with meds and current plan NH placement. CURRENT MEDICATIONS: See below. MENTAL STATUS EXAMINATION: Patient is a 48-year old male, with HD, he is with poor hygiene, chorea movements, hospital clothing, cooperative to interview. Speech: impoverished and one word responses Language skills are poor Thought processes including: appear mostly linear and logical Thought content: denies SI/HI, AVH Description of associations: unable to assess due to limited answers to question Description of abnormal or psychotic thoughts: denies Judgment: poor Insight: poor Orientation: alert, awake, oriented x3 Recent and remote memory: unable to assess due to limited answers to question Attention span and concentration: fair Language: micronesian Fund of knowledge: hx of dementia secondary HD, unable to assess due to limited answers to question Mood: "ok" Affect: slightly irritable, labile DIAGNOSES: 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 Per sitter pt did take his medications today. Appears more emotionally calm yet chorea mvmts continue with no real change or improvement. States he ate breakfast today. Pt's symptoms most likely due to natural decompensation of Wilkes's disease to chorea and eventual . Pt seen by neurology on Sunday who agrees with current med regimen that I discussed with him as tetrabenzine not available in the hospital. Will attempt to get head CT/MRI done today. He is calm and cooperative today with no episodes of agitation. Will need NH placement as again is natural progress and decompensation prior to secondary disease and per d/c finished goods planner is on wait list for [facility]. MANAGEMENT PLAN: pending neurology consult Medications: amantidine 100mg tid haldol 5mg bid for agitation secondary chorea zoloft 50mg for mood. benadryl 50mg q4hr prn anxiety/agitation TIME SPENT: 30 minutes. Vital Signs Vital Signs Date Time Temp Pulse Resp B/P (MAP) Pulse Ox O2 Delivery O2 Flow Rate FiO2 06/24/18 18:00 98.4 76 20 136/84 (101) 06/24/18 10:43 Room Air 06/21/18 19:30 98 Current Medications Current Medications Acetaminophen (Tylenol Tab) 650 mg Q6HP PRN PO HEADACHE or DISCOMFORT; Start 06/20/18 at 18:00 Al Hydrox/Mg Hydrox/Simethicone (Mylanta) 30 ml Q4HP PRN PO HEARTBURN/INDIGESTION; Start 06/20/18 at 18:00 Amantadine HCl (Symmetrel) 100 mg TID PO Last administered on 06/25/18at 09:03; Start 06/21/18 at 16:00 Chlorpromazine HCl (Thorazine) 50 mg STAT STAT IM Last administered on 06/20at 22:42; Start 06/20/18 at 22:42; Stop 06/20/18 at 22:44; Status DC Diphenhydramine HCl (Benadryl) 50 mg STAT STAT IM Last administered on 06/20/18at 22:13; Start 06/20/18 at 22:13; Stop 06/20/18 at 22:15; Status DC Diphenhydramine HCl (Benadryl) 50 mg STAT STAT IM Last administered on 06/21/18at 18:39; Start 06/21/18 at 18:24; Stop 06/21/18 at 18:28; Status DC Diphenhydramine HCl (Benadryl) 50 mg STAT STAT IM ; Start 06/21/18 at 18:28; Stop 06/21/18 at 18:32; Status DC Diphenhydramine HCl (Benadryl) 100 mg STAT STAT IM ; Start 06/24/18 at 16:28; Stop 06/24/18 at 17:19; Status DC Haloperidol (Haldol) 5 mg BID PO Last administered on 06/25/18at 09:04; Start 06/21/18 at 09:00 Haloperidol (Haldol) 5 mg STAT STAT IM Last administered on 06/20/18at 22:13; Start 06/20/18 at 22:13; Stop 06/20/18 at 22:15; Status DC Haloperidol (Haldol) 10 mg STAT STAT IM Last administered on 06/21/18at 18:39; Start 06/21/18 at 18:24; Stop 06/21/18 at 18:27; Status DC Haloperidol (Haldol) 10 mg STAT STAT IM ; Start 06/21/18 at 18:28; Stop 06/21/18 at 18:32; Status DC Haloperidol (Haldol) 10 mg STAT STAT IM ; Start 06/24/18 at 16:28; Stop 06/24/18 at 17:19; Status DC Home Med (Med Rec Complete!) ASDIRECTED XX ; Start 06/20/18 at 16:30; Stop 06/20/18 at 16:30; Status DC Lorazepam (Ativan) 1 mg Q4HP PRN PO ANXIETY/AGITATION; Start 06/20/18 at 18:00 Lorazepam (Ativan) 2 mg STAT STAT IM Last administered on 06/21/18at 18:38; Start 06/21/18 at 18:24; Stop 06/21/18 at 18:28; Status DC Lorazepam (Ativan) 2 mg STAT STAT IM ; Start 06/21/18 at 18:28; Stop 06/21/18 at 18:32; Status DC Lorazepam (Ativan) 2 mg STAT STAT PO ; Start 06/20/18 at 20:23; Stop 06/20/18 at 20:24; Status DC Magnesium Hydroxide (Milk Of Magnesia) 30 ml DAILYPRN PRN PO CONSTIPATION; Start 06/20/18 at 18:00 Olanzapine (ZyPREXA ZYDIS) 5 mg Q4HP PRN PO ANXIETY/AGITATION; Start 06/20/18 at 18:00 Sertraline HCl (Zoloft) 50 mg DAILY PO Last administered on 06/25/18at 09:03; Start 06/21/18 at 09:00 Trazodone HCl (Desyrel) 50 mg QHSP PRN PO INSOMNIA; Start 06/20/18 at 18:00 Allergies Coded Allergies: No Known Allergies (Unverified , 06/20/18) YOSELIN DENSON DO Jun 25, 2018 9:42 am
[2018-06-25] MEDS ORDERED: diphenhydrAMINE 50 MG CAP PO PRN (09:45)
[2018-06-25 18:00] VITALS: BP 124/78
[2018-06-26 06:41] VITALS: BP 148/82
--- NOTE | 2018-06-26 09:06 | MHIPNPDOC ---
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 He was guarded and a poor historian refusing medical and psychiatric treatment for his illness. He was cooperative in the ED though. VITAL SIGNS: See below. NEW TEST RESULTS: see below Neurology consulted and please see consult note for full detail. Agrees with meds and current plan NH placement. CURRENT MEDICATIONS: See below. MENTAL STATUS EXAMINATION: Asleep and unable to assess. MSE per yesterday's note. "Patient is a 48-year old male, with HD, he is with poor hygiene, chorea movements, hospital clothing, cooperative to interview. Speech: impoverished and one word responses Language skills are poor Thought processes including: appear mostly linear and logical Thought content: denies SI/HI, AVH Description of associations: unable to assess due to limited answers to question Description of abnormal or psychotic thoughts: denies Judgment: poor Insight: poor Orientation: alert, awake, oriented x3 Recent and remote memory: unable to assess due to limited answers to question Attention span and concentration: fair Language: latvian Fund of knowledge: hx of dementia secondary HD, unable to assess due to limited answers to question Mood: "ok" Affect: slightly irritable, labile" DIAGNOSES: Other mood d/o unspecified [place]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 Dementia ASSESSMENT:Pt seen with sitter in his room and is asleep and left sleeping. Per sitter pt did take his medications today. Per yesterday's note "Appears more emotionally calm yet chorea mvmts continue with no real change or improvement. States he ate breakfast today. Pt's symptoms most likely due to natural decompensation of Lesia's disease to chorea and eventual . Pt seen by neurology on [place] who agrees with current med regimen that I discussed with aranza winter as tetrabenzine not available in the hospital. Will attempt to get head CT/MRI done today. He is calm and cooperative today with no episodes of agitation. Will need NH placement as again is natural progress and decompensation prior to secondary disease and per d/c planner/scheduler is on wait list for [facility]. " MANAGEMENT PLAN: pending neurology consult Medications: amantidine 100mg tid haldol 5mg bid for agitation secondary chorea zoloft 50mg for mood. benadryl 50mg q4hr prn anxiety/agitation TIME SPENT: 30 minutes. Vital Signs Vital Signs Date Time Temp Pulse Resp B/P (MAP) Pulse Ox O2 Delivery O2 Flow Rate FiO2 06/26/18 06:41 96.7 75 16 148/82 (104) 06/24/18 10:43 Room Air 06/21/18 19:30 98 Current Medications Current Medications Acetaminophen (Tylenol Tab) 650 mg Q6HP PRN PO HEADACHE or DISCOMFORT; Start 06/20/18 at 18:00 Al Hydrox/Mg Hydrox/Simethicone (Mylanta) 30 ml Q4HP PRN PO HEAR TBURN/INDIGESTION; Start 06/20/18 at 18:00 Amantadine HCl (Symmetrel) 100 mg TID PO Last administered on 06/25/18at 15:34; Start 06/21/18 at 16:00 Chlorpromazine HCl (Thorazine) 50 mg STAT STAT IM Last administered on 06/20/18at 22:42; Start 06/20/18 at 22:42; Stop 06/20/18 at 22:44; Status DC Diphenhydramine HCl (Benadryl) 50 mg Q4HP PRN PO ANXIETY/AGITATION; Start 06/25/18 at 09:45 Diphenhydramine HCl (Benadryl) 50 mg STAT STAT IM Last administered on 06/20/18at 22:13; Start 06/20/18 at 22:13; Stop 06/20/18 at 22:15; Status DC Diphenhydramine HCl (Benadryl) 50 mg STAT STAT IM Last administered on 06/21/18at 18:39; Start 06/21/18 at 18:24; Stop 06/21/18 at 18:28; Status DC Diphenhydramine HCl (Benadryl) 50 mg STAT STAT IM ; Start 06/21/18 at 18:28; S top 06/21/18 at 18:32; Status DC Diphenhydramine HCl (Benadryl) 100 mg STAT STAT IM ; Start 06/24/18 at 16:28; Stop 06/24/18 at 17:19; Status DC Haloperidol (Haldol) 5 mg BID PO Last administered on 06/25/18at 09:04; Start 06/21/18 at 09:00 Haloperidol (Haldol) 5 mg STAT STAT IM Last administered on 06/20/18at 22:13; Start 06/20/18 at 22:13; Stop 06/20/18 at 22:15; Status DC Haloperidol (Haldol) 10 mg STAT STAT IM Last administered on 06/21/18at 18:39; Start 06/21/18 at 18:24; Stop 06/21/18 at 18:27; Status DC Haloperidol (Haldol) 10 mg STAT STAT IM ; Start 06/21/18 at 18:28; Stop 06/21/18 at 18:32; Status DC Haloperidol (Haldol) 10 mg STAT STAT IM ; Start 06/24/18 at 16:28; Stop 06/24/18 at 17:19; Status DC Home Med (Med Rec Complete!) ASDIRECTED XX ; Start 06/20/18 at 16:30; Stop 06/20/18 at 16:30; Status DC Lorazepam (Ativan) 1 mg Q4HP PRN PO ANXIETY/AGITATION; Start 06/20/18 at 18:00 Lorazepam (Ativan) 2 mg STAT STAT IM Last administered on 06/21/18at 18:38; Start 06/21/18 at 18:24; Stop 06/21/18 at 18:28; Status DC Lorazepam (Ativan) 2 mg STAT STAT IM ; Start 06/21/18 at 18:28; Stop 06/21/18 at 18:32; Status DC Lorazepam (Ativan) 2 mg STAT STAT PO ; Start 06/20/18 at 20:23; Stop 06/20/18 at 20:24; Status DC Magnesium Hydroxide (Milk Of Magnesia) 30 ml DAILYPRN PRN PO CONSTIPATION; Start 06/20/18 at 18:00 Olanzapine (ZyPREXA ZYDIS) 5 mg Q4HP PRN PO ANXIETY/AGITATION; Start 06/20/18 at 18:00 Sertraline HCl (Zoloft) 50 mg DAILY PO Last administered on 06/25/18at 09:03; Start 06/21/18 at 09:00 Trazodone HCl (Desyrel) 50 mg QHSP PRN PO INSOMNIA; Start 06/20/18 at 18:00 Allergies Coded Allergies: No Known Allergies (Unverified , 06/20/18) YOSELIN DENSON DO Jun 26, 2018 9:06 am
[2018-06-26] MEDS: SERTRALINE HCL 50 MG TAB PO SCH (09:27)
[2018-06-26] MEDS: AMANTADINE 100 MG CAP PO SCH ×3 (09:27→20:51)
[2018-06-26] MEDS: HALOPERIDOL 5 MG TAB PO SCH ×2 (09:28→20:51)
[2018-06-26 18:00] VITALS: BP 112/70
[2018-06-27 06:42] VITALS: BP 142/69
[2018-06-27] MEDS: SERTRALINE HCL 50 MG TAB PO SCH (09:29)
[2018-06-27] MEDS: AMANTADINE 100 MG CAP PO SCH ×3 (09:29→21:33)
[2018-06-27] MEDS: HALOPERIDOL 5 MG TAB PO SCH ×2 (09:29→21:32)
--- NOTE | 2018-06-27 09:37 | MHIPNPDOC ---
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 He was guarded and a poor historian refusing medical and psychiatric treatment for his illness. He was cooperative in the ED though. VITAL SIGNS: See below. NEW TEST RESULTS: see below Neurology consulted and please see consult note for full detail. Agrees with meds and current plan NH placement. CURRENT MEDICATIONS: See below. MENTAL STATUS EXAMINATION: Asleep and unable to assess. MSE per yesterday's note. "Patient is a 48-year old male, with HD, he is with poor hygiene, chorea movements, hospital clothing, cooperative to interview. Speech: impoverished and one word responses Language skills are poor Thought processes including: appear mostly linear and logical Thought content: denies SI/HI, AVH Description of associations: unable to assess due to limited answers to question Description of abnormal or psychotic thoughts: denies Judgment: poor Insight: poor Orientation: alert, awake, oriented x3 Recent and remote memory: unable to assess due to limited answers to question Attention span and concentration: fair Language: croatian Fund of knowledge: hx of dementia secondary HD, unable to assess due to limited answers to question Mood: "ok" Affect: slightly irritable, labile" DIAGNOSES: Other mood d/o unspecified [place]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 Dementia ASSESSMENT:Pt seen with sitter in his room and is asleep and left sleeping. Per sitter pt did take his medications today. Per staffing note pt up in the late mornings to evening, compliant with me, redirectable with staff, no epidoses of agitation or confusion. Chorea movements continue at their baseline when pt awake. Haldol appears to be benefiting pt's agitation/confusion and he appears to be tolerating it well. Per yesterday's note "Pt's symptoms most likely due to natural decompensation of [place]'s disease to chorea and eventual . Pt seen by neurology on Sunday who agrees with current med regimen that I discussed with him as tetrabenzine not available in the hospital. Will need NH placement as again is natural progress and decompensation prior to secondary disease and per d/c capacity planner is on wait list for [facility]. " MANAGEMENT PLAN: pending neurology consult Medications: amantidine 100mg tid haldol 5mg bid for agitation secondary chorea zoloft 50mg for mood. benadryl 50mg q4hr prn anxiety/agitation TIME SPENT: 30 minutes. Vital Signs Vital Signs Date Time Temp Pulse Resp B/P (MAP) Pulse Ox O2 Delivery O2 Flow Rate FiO2 06/27/18 06:42 97.9 77 16 142/69 (93) 06/24/18 10:43 Room Air 06/21/18 19:30 98 Current Medications Current Medications Acetaminophen (Tylenol Tab) 650 mg Q6HP PRN PO HEADACHE or DISCOMFORT; Start 06/20/18 at 18:00 Al Hydrox/Mg Hydrox/Simethicone (Mylanta) 30 ml Q4HP PRN PO HEARTBURN/INDIGESTION; Start 06/20/18 at 18:00 Amantadine HCl (Symmetrel) 100 mg TID PO Last administered on 06/26/18at 20:51; Start 06/21/18 at 16:00 Chlorpromazine HCl (Thorazine) 50 mg STAT STAT IM Last administered on 06/20/18at 22:42; Start 06/20/18 at 22:42; Stop 06/20/18 at 22:44; Status DC Diphenhydramine HCl (Benadryl) 50 mg Q4HP PRN PO ANXIETY/AGITATION; Start 06/25/18 at 09:45 Diphenhydramine HCl (Benadryl) 50 mg STAT STAT IM Last administered on 06/20/18at 22:13; Start 06/20/18 at 22:13; Stop 06/20/18 at 22:15; Status DC Diphenhydramine HCl (Benadryl) 50 mg STAT STAT IM Last administered on 06/21/18at 18:39; Start 06/21/18 at 18:24; Stop 06/21/18 at 18:28; Status DC Diphenhydramine HCl (Benadryl) 50 mg STAT STAT IM ; Start 06/21/18 at 18:28; Stop 06/21/18 at 18:32; Status DC Diphenhydramine HCl (Benadryl) 100 mg STAT STAT IM ; Start 06/24/18 at 16:28; Stop 06/24/18 at 17:19; Status DC Haloperidol (Haldol) 5 mg BID PO Last administered on 06/26/18at 20:51; Start 06/21/18 at 09:00 Haloperidol (Haldol) 5 mg STAT STAT IM Last administered on 06/20/18at 22:13; Start 06/20/18 at 22:13; Stop 06/20/18 at 22:15; Status DC Haloperidol (Haldol) 10 mg STAT STAT IM Last administered on 06/21/18at 18:39; Start 06/21/18 at 18:24; Stop 06/21/18 at 18:27; Status DC Haloperidol (Haldol) 10 mg STAT STAT IM ; Start 06/21/18 at 18:28; Stop 06/21/18 at 18:32; Status DC Haloperidol (Haldol) 10 mg STAT STAT IM ; Start 06/24/18 at 16:28; Stop 06/24/18 at 17:19; Status DC Home Med (Med Rec Complete!) ASDIRECTED XX ; Start 06/20/18 at 16:30; Stop 06/20/18 at 16:30; Status DC Lorazepam (Ativan) 1 mg Q4HP PRN PO ANXIETY/AGITATION; Start 06/20/18 at 18:00 Lorazepam (Ativan) 2 mg STAT STAT IM Last administered on 06/21/18at 18:38; Start 06/21/18 at 18:24; Stop 06/21/18 at 18:28; Status DC Lorazepam (Ativan) 2 mg STAT STAT IM ; Start 06/21/18 at 18:28; Stop 06/21/18 at 18:32; Status DC Lorazepam (Ativan) 2 mg STAT STAT PO ; Start 06/20/18 at 20:23; Stop 06/20/18 at 20:24; Status DC Magnesium Hydroxide (Milk Of Magnesia) 30 ml DAILYPRN PRN PO CONSTIPATION; Start 06/20/18 at 18:00 Miscellaneous (Unresolved Clarification Entry) SEE LABEL COMMENTS DAILY XX ; Start 06/26/18 at 09:00; Stop 06/27/18 at 07:09; Status DC Miscellaneous (Unresolved Clarification Entry) SEE LABEL COMMENTS DAILY XX ; Start 06/27/18 at 09:00 Olanzapine (ZyPREXA ZYDIS) 5 mg Q4HP PRN PO ANXIETY/AGITATION; Start 06/20/18 at 18:00 Sertraline HCl (Zoloft) 50 mg DAILY PO Last administered on 06/26/18at 09:27; Start 06/21/18 at 09:00 Trazodone HCl (Desyrel) 50 mg QHSP PRN PO INSOMNIA; Start 06/20/18 at 18:00 Allergies Coded Allergies: No Known Allergies (Unverified , 06/20/18) YOSELIN DENSON DO Jun 27, 2018 9:37 am
[2018-06-27 18:00] VITALS: BP 120/58
[2018-06-28 06:57] VITALS: BP 111/63
[2018-06-28] MEDS: SERTRALINE HCL 50 MG TAB PO SCH (09:45)
[2018-06-28] MEDS: HALOPERIDOL 5 MG TAB PO SCH ×2 (09:45→21:00)
[2018-06-28] MEDS: AMANTADINE 100 MG CAP PO SCH ×3 (09:45→21:00)
--- NOTE | 2018-06-28 18:09 | MHIPN ---
DATE: 06/28/2018 SUBJECTIVE: Patient reports, "Can I go home" to another staff. He was not able to speak to me. He went to sleep; however, I observed him being in the hallway with choreoathetoid movements. Still continues to have poor self-care. OBJECTIVE: He is a 48-year-old male with a history of Lesia's chorea with no psychiatric history; however, has history of dementia and some behavioral problems. Currently is improving; however, patient is not willing to go to a alf. MENTAL STATUS EXAMINATION: Casually dressed. Behavior is restless, pacing, somewhat agitated. Eye contact is fleeting, indirect. Speech: Somewhat conversant. Nonspontaneous. Mood is depressed. Affect is constricted. Thought process: Blocked. Thought content: Somewhat delusional. Denied any auditory or visual hallucinations. His is alert, oriented to person. Insight and judgment are limited. DIAGNOSES: 1. Mood disorder, unspecified. 2. Lesia's chorea associated with dementia. VITAL SIGNS: Temperature 97.1, pulse 75, respiratory rate 18, blood pressure is 111/63. Patient continues to be showing some agitation and disorganized thoughts. PLAN: Continue current medication. Continue individual and group therapy. ESTIMATED LENGTH OF STAY: 4-5 days.
[2018-06-28 18:30] VITALS: BP 120/78
[2018-06-29 07:03] VITALS: BP 136/69
[2018-06-29] MEDS: HALOPERIDOL 5 MG TAB PO SCH ×2 (09:00→21:00)
[2018-06-29] MEDS: SERTRALINE HCL 50 MG TAB PO SCH (09:00)
[2018-06-29] MEDS: AMANTADINE 100 MG CAP PO SCH ×3 (09:00→21:00)
[2018-06-29 18:00] VITALS: BP 134/82
[2018-06-30 06:57] VITALS: BP 138/76
[2018-06-30] MEDS: SERTRALINE HCL 50 MG TAB PO SCH (09:00)
[2018-06-30] MEDS: HALOPERIDOL 5 MG TAB PO SCH ×2 (09:00→20:57)
[2018-06-30] MEDS: AMANTADINE 100 MG CAP PO SCH ×3 (09:00→20:57)
[2018-06-30 18:00] VITALS: BP 126/70
[2018-07-01 06:28] VITALS: BP 109/57
[2018-07-01] MEDS: AMANTADINE 100 MG CAP PO SCH ×3 (09:00→21:00)
[2018-07-01] MEDS: SERTRALINE HCL 50 MG TAB PO SCH (09:00)
[2018-07-01] MEDS: HALOPERIDOL 5 MG TAB PO SCH ×2 (09:00→21:00)
[2018-07-01] MEDS ORDERED: HALOPERIDOL 2 MG TAB PO STA (15:00)
--- NOTE | 2018-07-01 15:16 | MHIPN ---
DATE: 07/01/2018 SUBJECTIVE: "I don't want to the long term, why I cannot go home. Do you know anything about me." OBJECTIVE: A 48-year-old male with a history of [place] chorea without an previous psychiatric history, was admitted because of some behavioral issues and possible dementia. Currently, there are no behavioral issues on the unit. However, according to physical therapy, patient needs long term, but patient is refusing to go. MENTAL STATUS EXAMINATION: Casually dressed. Cooperative. Somewhat pacing. Continues to have chorea movement of the limbs and the body. Mood is somewhat anxious and depressed. Denied any delusions. Denied any hallucinations. Insight and judgment are fair. DIAGNOSES: 1. Mood disorder, unspecified. 2. Lesia chorea, rule out dementia. VITAL SIGNS: Temperature 97, pulse 51, respiratory rate is 14, blood pressure 109/57. MEDICATIONS: - amantadine 100 mg three times a day - Haldol 5 mg twice a day - sertraline 50 mg twice a day We will pursue for retention over objection and possible long term discharge. Meanwhile, we will talk to his sister and his brothers for any other solution we can come up with.
[2018-07-01 18:04] VITALS: BP 148/78
[2018-07-02] MEDS: SERTRALINE HCL 50 MG TAB PO SCH (09:00)
[2018-07-02] MEDS: HALOPERIDOL 5 MG TAB PO SCH ×2 (09:00→21:00)
[2018-07-02] MEDS: AMANTADINE 100 MG CAP PO SCH ×3 (09:00→21:00)
--- NOTE | 2018-07-02 17:59 | MHIPN ---
DATE: 07/02/2018 SUBJECTIVE: "Why I cannot go home. I want to go home today." OBJECTIVE: This is a 48-year-old man with a history of [place]'s chorea without previous psychiatric hospital admissions. He was admitted because of some behavioral issues and possible dementia. Currently there is some anger towards holding him here. Other than that, no other behavioral issues. Patient has a history of destructive behavior at home. He had destroyed his kitchen cabinet and reportedly his family feels that he should be in a nursing, and it is our recommendation also. The patient is refusing to go. MENTAL STATUS EXAMINATION: Casually dressed, cooperative, somewhat pacing; however, coherent and goal directed. Makes good eye contact. Continues to have choreoathetoid movement because of [place]'s chorea. Insight and judgment are limited. DIAGNOSES: Mood disorder, not otherwise specified. [place]'s chorea. Rule out dementia. VITAL SIGNS: Temperature 98, pulse is 107, respiratory rate is 18, blood pressure is 148/78. LABORATORY: CBC, CMP within normal limits. Urine toxicology was negative. CURRENT MEDICATIONS: - amantadine 100 mg three times daily - Haldol 5 mg twice a day - sertraline 50 mg once daily Patient has been refusing his medications. PLAN: Plan is to persuade him to take his medications. There is a court date set up on 07/04/2018 for a hearing. His [place] attorney will come tomorrow to see him.
[2018-07-02 18:00] VITALS: BP 110/66
[2018-07-03] MEDS: AMANTADINE 100 MG CAP PO SCH ×3 (09:00→21:00)
[2018-07-03] MEDS: SERTRALINE HCL 50 MG TAB PO SCH (09:00)
[2018-07-03] MEDS: HALOPERIDOL 5 MG TAB PO SCH ×2 (09:00→21:00)
--- NOTE | 2018-07-03 15:15 | MHIPN ---
DATE: 07/03/2018 SUBJECTIVE: The patient today was cooperative. He has reported that, "I want to go home". He was walking in the hallway by himself. His 1-to-1 sitter was with him. Patient did not need any assistance even though he continued with chorea moment. He did fall down. OBJECTIVE: This is a 48-year-old male with history of Lesia's disease which has progressed to chorea. He lives by himself. He recently fired his home health aide. Initially the plan was to send him to the skilled nursing and we have a court date tomorrow for his retention on the unit. However, there is a recommendation from physical therapy (PT) today that if patient goes home, he needs PT and (occupational therapy) OT and 24-hours supervision at least during the transition. MENTAL STATUS EXAMINATION: Casually dressed. Behavior is cooperative, somewhat restless. Continues to have movement disorder. His mood is euthymic. Speech is goal-directed, monosyllabic. Denied any auditory or visual hallucinations. He is alert, oriented to time, place and person. Denied any suicidal or homicidal ideas. DIAGNOSIS: Mood disorder, not otherwise specified. [place]'s chorea associated with dementia. VITAL SIGNS: Temperature 98, pulse 94, respiratory rate 20 and blood pressure 110/66. CURRENT MEDICATIONS: - amantadine 100 mg three times a day - Ritalin 50 mg daily - Haldol 5 mg twice a day Continue individual and group therapy.
[2018-07-04 07:02] VITALS: BP 123/70
[2018-07-04] MEDS: SERTRALINE HCL 50 MG TAB PO SCH (09:00)
[2018-07-04] MEDS: AMANTADINE 100 MG CAP PO SCH ×3 (09:00→21:00)
[2018-07-04] MEDS: HALOPERIDOL 5 MG TAB PO SCH ×2 (09:00→21:00)
--- NOTE | 2018-07-04 13:53 | MHIPN ---
DATE: 07/04/2018 SUBJECTIVE: "I want to go home. I want to be discharged soon". OBJECTIVE: He is a 48-year-old male with history of Lesia's disease without previous psychiatric admissions or diagnosis, was admitted because of some behavioral issues at [facility]. Reportedly he banged his head again the wall. When patient came in he was angry for getting into psychiatric unit. He was walking dangerously. Had to be medicated. Patient has not been taking his medications, however, for the last 1 week he has been behaving well. There is no behavioral or emotional issues. MENTAL STATUS EXAMINATION: Casually dressed. Cooperative. Laying in bed. Continues to have choreoathetoid movements. Psychomotor activity is increased. His speech is somewhat blocked, however, goal directed. Makes good eye contact. Thought content denied any suicidal or homicidal ideas. Denied any auditory or visual hallucinations. His memory recent and remote were good. Immediate recall was 2 out of 3. Otherwise he was oriented to time, place, and person. Insight and judgment are fair. DIAGNOSIS: [place]'s disease. Mood disorder, not otherwise specified. Rule out dementia. VITAL SIGNS: Temperature 98.1, pulse 74, respiratory rate 16, blood pressure 123/70. LABS: CBC, CMP, and urine toxicology was negative. His CBC and CMP within normal limits. PLAN: Continue current medication. Continue individual and group therapy. As per physical therapy (PT) patient is able to self correct his balance throughout the session without use of an assistive device and ambulated well. He would benefit from physical therapy (PT) at home and I ordered evaluation to determine the needs at home set up. We will consider discharging the patient after meeting all those required services.
--- NOTE | 2018-07-04 15:09 | MHDS ---
DATE OF ADMISSION: 06/20/2018 DATE OF DISCHARGE: IDENTIFYING DATA: He is a 48-year-old male with history of Lesia's disease with chorea who was referred from outpatient [facility] as the patient was agitated. For details of history of present illness (HPI), past psychiatric, past medical history, social history, please refer to the initial evaluation. The patient reportedly destroyed the kitchen cabinet and was banging his head against the wall in doctor's office in [place]. He was initially very angry for admitting him into the psychiatric unit. He was agitated, walking dangerously on the unit, losing balance with possibility of falling down. He was medicated. He was placed on Haldol, amantadine, and Zoloft. However, the patient refused the medications ever since he came. For the last seven days, he has been not acting out. There is no behavioral problems, only pleading for his discharge. The patient helps himself with his eating and other activities of daily living (ADLs). He has been seen by neurologist who agreed with the line of treatment we are pursuing. He was seen by physical therapy (PT). According to the PT report, he has chorea type movement due to Lesia's disease. He self-corrected himself on his own without any assistance though he was seen losing the balance. He could ambulate at least 100 feet without any assistance. Reportedly, the patient would benefit from home PT and home occupational therapy (OT). The patient was on one-to-one observation throughout his stay in the hospital. His mini mental status was done. His remote and recent memory were good, only immediate recall was 2/3, but he was oriented to time, place and person. The public health social worker has obtained all the services for him including home health aide who will come and evaluate him on Sunday regarding further requirement at home and also mobile integration services. MENTAL STATUS EXAMINATION: Casually dressed, cooperative, laying in his bed. He continues to have chorea type movements. Psychomotor activity is increased. Speech is somewhat blocked, however, goal-directed. He makes good eye contact. Though Content: Denies any suicidal or homicidal ideas. Denies any auditory or visual hallucinations. His memory, recent and remote were good, immediate recall 2/3. Otherwise, he is oriented to time, place and person. Insight and judgment was fair. DIAGNOSES: 1. [place]'s chorea. 2. Mood disorder, not otherwise specified. 3. Rule out dementia. VITAL SIGNS: Temperature 98.1, pulse 74, respiratory rate is 16, blood pressure is 123/70. LABORATORY DATA: CMP and CBC within normal limits. Urine toxicology was negative. PLAN: Continue individual group therapy. Followup at [facility] ([place] with a neurologist and home health aide will see him on Sunday. The patient will be discharged on 07/05/2018 after noon.
[2018-07-04 18:00] VITALS: BP 128/66
[2018-07-05 06:53] VITALS: BP 131/72
[2018-07-05] MEDS: SERTRALINE HCL 50 MG TAB PO SCH (09:00)
[2018-07-05] MEDS: AMANTADINE 100 MG CAP PO SCH (09:00)
[2018-07-05] MEDS: HALOPERIDOL 5 MG TAB PO SCH (09:00)
== END 2018-07-05 12:41 | disposition home or self-care (01) | DRG 885 ==
LOC: M ED 12:44 → M ED INP 17:56 → M PSY 23:35
PROVIDERS: ADMIT Psychiatry & Neurology Psychiatry; ATTEND Psychiatry & Neurology Psychiatry
DX: F39 Unspecified mood [affective] disorder (principal); G10 Huntington's disease; F03.90 Unspecified dementia, unspecified severity, without behavioral disturbance, psychotic disturbance, mood disturbance, and anxiety; F41.9 Anxiety disorder, unspecified